=== PATIENT | male | born 1995 | race Caucasian/White ===

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

== ENCOUNTER → 2020-04-08 | Outpatient (CLI) | payer OTHER ==
[2020-04-08 10:33] LABS: Basophils # (A) 0.1 k/uL (0-0.2); Basophils % (A) 2 %; Eosinophils # (A) 0.2 k/uL (0-0.7); Eosinophils % (A) 4 %; HCT 47.3 % (39.0-53.0); HGB 16.2 gm/dL (13.0-17.5); Lymphocytes # (A) 1.9 k/uL (1.0-4.8); Lymphocytes % (A) 36 %; MCH 30.8 pg (25.0-35.0); MCHC 34.3 g/dL (31.0-37.0); MCV 89.9 fL (80.0-100.0); Mean Platelet Volume 7.7; Monocytes # (A) 0.2 k/uL (0-1.0); Monocytes % (A) 4 %; Neutrophils # (A) 2.7 k/uL (1.3-7.7); Neutrophils % (A) 51 %; Platelet Count 282 k/uL (150-450); RBC 5.26 m/uL (4.30-5.90); WBC 5.2 k/uL (3.8-10.6)
[2020-04-08 10:45] LABS: ALT 20 U/L (4-49); AST 23 U/L (17-59); African American GFR (CKD) >90 (>60 ml/min/1.73 sqM); Albumin 4.8 g/dL (3.5-5.0); Alkaline Phosphatase 38 U/L (38-126); Anion Gap 13 mmol/L; Blood Urea Nitrogen 9 mg/dL (9-20); Calcium 10.1 mg/dL (8.4-10.2); Carbon Dioxide 22 mmol/L (22-30); Chloride 106 mmol/L (98-107); Glucose 92 mg/dL (74-99); Non-African American GFR(CKD) >90 (>60 ml/min/1.73 sqM); Potassium 4.2 mmol/L (3.5-5.1); Sodium 141 mmol/L (137-145); Total Bilirubin 0.8 mg/dL (0.2-1.3); Total Protein 7.8 g/dL (6.3-8.2)
[2020-04-08 11:03] LABS: T4, Free (Free Thyroxine) 0.91 ng/dL (0.78-2.19)
--- NOTE | 2020-04-08 12:28 | P.STRESS ---
- Stress Test Note Stress Test Results/Findings: Exam Performed: stress echo exercise Exam Date: 04/08/20 Reason for Exam: CHEST PAIN Height: 6 ft Weight: 170 kg Protocol: VENKAT Stage: 5 Duration of Exercise: 12:55 Resting Heart Rate: 63 Resting Blood Pressure: 120/59 Maximum Achieved Heart Rate: 177 Maximum Achieved Blood Pressure: 181/78 85% PMHR: 167 100% PMHR: 197 METS: 13.1 Technologist Comment: Stress Test Results/Findings: Patient underwent exercise stress echo with a Venkat protocol treadmill stress test. Patient exercised into Stage 5 for a total of 12 minutes 55 seconds reaching a total of 13.1 METS. Patient's maximum heart rate was 177 which represented 90 % age-predicted maximum heart rate. Stress EKG portion: At baseline patient's EKG showed normal sinus rhythm, normal axis, J-point elevation in the inferior lateral leads out any reciprocal changes. At peak exercise, EKG showed no significant change from baseline. Stress echo portion: 2-D echocardiogram was performed in the parasternal long, personal short, apical 2 and apical four-chamber views at rest, peak exercise and in recovery. At baseline, echocardiogram showed left ventricular ejection fraction 60 % without wall motion abnormalities. With peak exercise, echocardiogram shows improvement in left ventricular ejection fraction, increase contractility, decrease in left ventricular dimension without wall motion abnormalities consistent with a normal response to exercise. Conclusions: 1. Normal EKG and echo response to exercise without evidence of inducible ischemia. 2. Good exercise capacity.
== END | disposition home or self-care (01) ==
LOC: RADNMMAIN 08:03
PROVIDERS: ATTEND Internal Medicine
DX: R06.02 Shortness of breath (principal); R00.2 Palpitations
CPT/HCPCS: 80053; 84439; 84443; 84481; 85025; 93351

== ENCOUNTER → 2020-05-10 | Outpatient (CLI) | payer OTHER ==
--- NOTE | 2020-05-10 15:40 | XR ---
EXAMINATION TYPE: XR abdomen 1V DATE OF EXAM: 05/10/2020 Comparison: 07/19/2015 Clinical History: 25-year-old male R10.84 abdominal pain Findings: Moderate stool right side of the abdomen. No dilated small bowel. No suspicious calcifications seen. Supine imaging limited for assessment of free air. Impression: Moderate stool in the right side of the abdomen. Nonobstructive bowel gas pattern.
== END | disposition home or self-care (01) ==
LOC: RADXRMAIN 14:03
PROVIDERS: ATTEND Internal Medicine
DX: R19.5 Other fecal abnormalities (principal); R14.3 Flatulence
CPT/HCPCS: 74018

== ENCOUNTER 2020-05-13 15:14 | Emergency (ER) | payer OTHER ==
--- NOTE | 2020-05-13 15:43 | ED ---
General Adult HPI - General Chief complaint: Abdominal Pain Stated complaint: Constipation Time Seen by Provider: 05/13/20 15:19 Source: patient Mode of arrival: ambulatory Limitations: no limitations - History of Present Illness Initial comments: Dictation was produced using [employer] dictation software. please excuse any grammatical, word or spelling errors. This patient was cared for during a federal and state declared state of emergency secondary to Covid 19 Chief Complaint: 25-year-old male presents to the emergency department for constipation. History of Present Illness: 25-year-old male U was told to come to the emergency department for enema. Over the last 3-4 days patient reports feeling constipated. States that he's been having small stools. He says primary care doctor earlier in the week and was prescribed stool softeners and omeprazole. Patient has any pain at this time. He states that he does experience left-sided abdominal pain however to relieved with bowel movement. He had small caliber stool bowel movement today. He did complain of some nausea today. Currently he is asymptomatic. He left work to come to the emergency room because of symptoms. Denies any constitutional symptoms. Patient reports he drinks 3-4 bottles a day, he does not take any medications, however he does not eat any high fiber foods on a regular basis. The ROS documented in this emergency department record has been reviewed and confirmed by me. Those systems with pertinent positive or negative responses have been documented in the HPI. All other systems are other negative and/or noncontributory. PHYSICAL EXAM: General Impression: Alert and oriented x3, not in acute distress HEENT: Normocephalic atraumatic, extra-ocular movements intact, pupils equal and reactive to light bilaterally, mucous membranes moist. Cardiovascular: Heart regular rate and rhythm Chest: Able to complete full sentences, no retractions, no tachypnea Abdomen: abdomen soft, non-tender, non-distended, no organomegaly Musculoskeletal: Pulses present and equal in all extremities, no peripheral edema Motor: no focal deficits noted Neurological: CN II-XII grossly intact, no focal motor or sensory deficits noted Skin: Intact with no visualized rashes Psych: Normal affect and mood ED course: 25-year-old male presents to the emergency room for chief complaint of obstipation. Vital signs upon arrival are within acceptable limits. given an enema. Patient states he had a bowel movement. Patient revived bedside vitamin stable medical condition. Patient be discharged. Patient counseled on adequate hydration, diet habits to treat constipation. - Related Data Home Medications Medication Instructions Recorded Confirmed Methylphenidate HCl [Concerta] 18 mg PO DAILY 07/19/15 11/20/15 No Known Home Medications 06/10/16 06/10/16 Allergies Allergy/AdvReac Type Severity Reaction Status Date / Time No Known Allergies Allergy Verified 05/13/20 15:18 Review of Systems ROS Statement: Those systems with pertinent positive or pertinent negative responses have been documented in the HPI. ROS Other: All systems not noted in ROS Statement are negative. Past Medical History Past Medical History: No Reported History History of Any Multi-Drug Resistant Organisms: None Reported Past Surgical History: No Surgical Hx Reported Past Psychological History: ADD/ADHD, No Psychological Hx Reported Smoking Status: Never smoker Past Alcohol Use History: None Reported, Occasional Past Drug Use History: Marijuana, None Reported General Exam Limitations: no limitations Course Vital Signs 05/13/20 15:14 Temperature 97.6 F Pulse Rate 69 Respiratory 16 Rate Blood Pressure 116/68 O2 Sat by Pulse 99 Oximetry Disposition Clinical Impression: Constipation Disposition: HOME SELF-CARE Condition: Good Instructions (If sedation given, give patient instructions): Constipation (ED) Is patient prescribed a controlled substance at d/c from ED?: No Referrals: Codi Moody MD [Primary Care Provider] - 1-2 days Time of Disposition: 17:29
--- NOTE | 2020-05-13 16:13 | XR ---
EXAMINATION TYPE: XR abdomen 1V DATE OF EXAM: 05/13/2020 Comparison: 05/10/2020 Clinical History: 25-year-old male reported constipation Findings: Lung bases are clear. No evidence for free intraperitoneal air. No dilated small bowel or air-fluid levels. Scattered mild to moderate stool. Air and stool extends distally to the rectum. No suspicious calcification seen. Impression: No evidence for free air or bowel obstruction. Mild to moderate stool burden.
[2020-05-13 17:43] VITALS: BP 115/71; PULSE 70; RESP 18; TEMP 98
== END 2020-05-13 17:43 | disposition home or self-care (01) ==
LOC: EC 15:14
DX: K59.00 Constipation, unspecified (principal); R11.0 Nausea
CPT/HCPCS: 74018; 99284

== ENCOUNTER → 2020-05-25 | Outpatient (CLI) | payer OTHER ==
--- NOTE | 2020-05-25 21:09 | CT ---
EXAMINATION TYPE: CT abdomen pelvis w con DATE OF EXAM: 05/25/2020 COMPARISON: Abdominal x-ray 12 days ago. HISTORY: Left lower quadrant abdominal pain and constipation. CT DLP: 706.6 mGycm, Automated Exposure Control for Dose Reduction was Utilized. CONTRAST: CT scan of the abdomen and pelvis is performed with oral and with IV Contrast, patient injected with 100ml mL of Isovue 300. FINDINGS: LUNG BASES: No significant abnormality is appreciated. LIVER/GB: No significant abnormality is appreciated. PANCREAS: No significant abnormality is seen. SPLEEN: No significant abnormality is seen. ADRENALS: No significant abnormality is seen. KIDNEYS: Symmetric cortical medullary uptake and excretion without hydronephrosis seen bilaterally. B ladder shows mild concentric wall thickening along with small posterior superior diverticulum coronal image 58. Underlying cystitis is not excluded. Correlate clinically. BOWEL: Oral contrast reaches level of cecum making evaluation of distal bowel suboptimal. Evaluation also suboptimal as patient has little intra-abdominal fat. No suspicious small or large bowel dilatat ion. Terminal ileum appears within normal limits. No significant diverticulosis or CT evidence for ac jordon diverticulitis. PROSTATE/SEMINAL VESICLES: No gross abnormality seen. LYMPH NODES: No greater than 1cm abdominal or pelvic lymph nodes are appreciated. OSSEOUS STRUCTURES: No significant abnormality is seen. OTHER: No significant additional abnormality is seen. IMPRESSION: Possible cystitis as there is mild concentric bladder wall thickening. Bladder diverticul um noted. Correlate clinically. No bowel obstruction. No acute findings otherwise are seen.
== END | disposition home or self-care (01) ==
LOC: RADCTMAIN 17:31
PROVIDERS: ATTEND Internal Medicine
DX: N32.3 Diverticulum of bladder (principal)
CPT/HCPCS: 74177; Q9967

== ENCOUNTER 2022-01-04 13:38 | Emergency (ER) | payer OTHER ==
[2022-01-04 14:42] VITALS: BP 124/73; PULSE 81; RESP 20; TEMP 98.6
[2022-01-04] MEDS ORDERED: ONDANSETRON ODT 4 MG TAB PO STA (15:28)
[2022-01-04] MEDS ORDERED: DIPHENOX-ATROP STARTER PACK 8 TAB BTL PO STA (15:28)
[2022-01-04] MEDS ORDERED: DIPHENOX-ATROP 2.5-0.025 MG 1 EACH TAB PO STA (15:28)
[2022-01-04] MEDS ORDERED: ONDANSETRON 4 MG ODT STARTER PACK 2 TAB BTL PO STA (15:28)
--- NOTE | 2022-01-04 15:32 | ED ---
General Adult HPI - General Chief complaint: Nausea/Vomiting/Diarrhea Stated complaint: hot/cold sweats, vomiting Time Seen by Provider: 01/04/22 15:00 Source: patient, RN notes reviewed, old records reviewed Mode of arrival: ambulatory Limitations: no limitations - History of Present Illness Initial comments: This is a 27-year-old male who presents emergency Department complaining that for the last 4 days he has been having nausea and vomiting. Patient states the vomiting is subsided but he continues to be nauseous occasionally. Patient states he has some abdominal cramping but he started having diarrhea shortly after that and he is continued to have diarrhea and even through today. Patient states he has no abdominal pain or cramping today. Patient denies any fever chills today however he believes he had a fever a few days ago. Patient denies being on any antibiotics recently. Patient denies being around any one else has similar symptoms. Patient denies any chest pain or difficulty breathing. Patient denies any other symptoms at this time. - Related Data Home Medications Medication Instructions Recorded Confirmed Methylphenidate HCl [Concerta] 18 mg PO DAILY 07/19/15 11/20/15 No Known Home Medications 06/10/16 06/10/16 Allergies Allergy/AdvReac Type Severity Reaction Status Date / Time No Known Allergies Allergy Verified 01/04/22 14:42 Review of Systems ROS Statement: Those systems with pertinent positive or pertinent negative responses have been documented in the HPI. ROS Other: All systems not noted in ROS Statement are negative. Past Medical History Past Medical History: No Reported History History of Any Multi-Drug Resistant Organisms: None Reported Past Surgical History: No Surgical Hx Reported Past Psychological History: ADD/ADHD, No Psychological Hx Reported Smoking Status: Never smoker Past Alcohol Use History: None Reported, Occasional Past Drug Use History: Marijuana, None Reported General Exam - General Exam Comments Initial Comments: GENERAL: Patient is well-developed and well-nourished. Patient is nontoxic and well- hydrated and is in mild distress. ENT: Neck is soft and supple. No significant lymphadenopathy is noted. Oropharynx is clear. Moist mucous membranes. Neck has full range of motion without eliciting any pain. EYES: The sclera were anicteric and conjunctiva were pink and moist. Extraocular movements were intact and pupils were equal round and reactive to light. Eyelids were unremarkable. PULMONARY: Unlabored respirations. Good breath sounds bilaterally. No audible rales rhonchi or wheezing was noted. CARDIOVASCULAR: There is a regular rate and rhythm without any murmurs gallops or rubs. ABDOMEN: Soft and nontender with normal bowel sounds. SKIN: Skin is clear with no lesions or rashes and otherwise unremarkable. NEUROLOGIC: Patient is alert and oriented x3. Cranial nerves II through XII are grossly intact. Motor and sensory are also intact. Normal speech, volume and content. Symmetrical smile. MUSCULOSKELETAL: Normal extremities with adequate strength and full range of motion. PSYCHIATRIC: Normal psychiatric evaluation. Limitations: no limitations Course Vital Signs 01/04/22 14:37 Temperature 98.6 F Pulse Rate 81 Respiratory 20 Rate Blood Pressure 124/73 O2 Sat by Pulse 99 Oximetry Medical Decision Making - Medical Decision Making Patient received Zofran and Lomotil in the emergency department. Disposition Clinical Impression: Gastroenteritis Disposition: HOME SELF-CARE Instructions (If sedation given, give patient instructions): Gastroenteritis (ED) Additional Instructions: Patient should take Zofran if he is nauseous. Patient should only take Lomotil if he continues to have diarrhea. Is patient prescribed a controlled substance at d/c from ED?: No Referrals: Codi Moody MD [Primary Care Provider] - 1-2 days Time of Disposition: 15:31
== END 2022-01-04 16:04 | disposition home or self-care (01) ==
LOC: EC 13:38
DX: K52.9 Noninfective gastroenteritis and colitis, unspecified (principal)
CPT/HCPCS: 99283; S0119